=== PATIENT | female | born 1985 | race American Indian/Alaskan Native ===

== ENCOUNTER 2016-09-15 18:07 | Emergency (ER) | payer SELFPAY ==
[2016-09-15 18:43] VITALS: BP 115/70
--- NOTE | 2016-09-15 19:01 | Emergency Department Report ---
Upper Extremity - HPI Chief Complaint: Extremity Injury, Upper Stated Complaint: LT HAND INJURED Time Seen by Provider: 09/15/16 18:59 Upper Extremity: Right Hand (Pain shooting pain in lt hand) Occurred When: 2 Days Mechanism: Other (Lifting , changing car tire) Severity: moderate (6/10) Symptoms: No Pain with Movement, No Deformity, No Limited Range of Movement, No Numbness, No Weakness, No Swelling, No Bruising/Ecchymosis, No Laceration or Abrasion Other History: Patient reports shooting pain in both her hands that started 2 days ago. Pain resolved to rt hand but remains in lt hand. Shooting from wrist. This started after she was changing a tire from car. Took tylenol with little relief. No numbmess,to hands. Burning pain. Patient said she is 16 weeks followed by [facility]. No complaints of vaginal bleed, abdominal pain or back pain. Denies fever or nausea or vomiting. ED Review of Systems ROS: Stated complaint: LT HAND INJURED Other details as noted in HPI Comment: All other systems reviewed and negative Constitutional: denies: chills, fever ENT: denies: throat pain Respiratory: no symptoms reported Cardiovascular: denies: chest pain, palpitations, edema, syncope Gastrointestinal: denies: abdominal pain, nausea, vomiting Musculoskeletal: arthralgia. denies: back pain, joint swelling, myalgia Skin: denies: rash Neurological: paresthesias (burning). denies: headache, weakness, abnormal gait , vertigo ED Past Medical Hx - Past Medical History Previous Medical History?: No - Surgical History Past Surgical History?: No - Family History Family history: no significant - Social History Smoking Status: Never Smoker Substance Use Type: None - Medications Home Medications: Home Medications Medication Instructions Recorded Confirmed Last Taken Type Acetaminophen/Codeine [Tylenol 1 tab PO Q12H PRN #6 tab 09/15/16 Unknown Rx /Codeine # 3 tab] Upper Extremity Exam - Exam General: Vital signs noted. No distress. Alert and acting appropriately. This is a 31 yo female well nourished well developed in no acute distress Head and Torso: No HEENT Abnormality (normal exam), No Neck Tenderness (normal exam), No Chest/Lungs Abnormality (normal exam), No Abdominal Tenderness ( normal exam), No Back Tenderness (normal exam) Shoulder Exam: Yes Normal Range of Motion in Shoulder, No Shoulder Tenderness, No Clavicle Tenderness, No Shoulder Deformity, No AC Joint Tenderness Arm Exam: No Arm/Humerus Tenderness, No Arm Deformity Elbow: Yes Normal Range of Motion in Elbow, No Elbow Tenderness, No Elbow Deformity Forearm: No Forearm Tenderness, No Forearm Deformity, No Pain with Pronation, No Pain with Supination Wrist: Yes Normal ROM in Wrist, No Wrist Tenderness, No Wrist Deformity, No Snuffbox Tenderness, No Pain with Axial Thumb Compression Hand: Yes Normal ROM in Digit(s), No Hand Tenderness, No Hand Deformity, No Digit Tenderness, No Digit(s) Deformity, No Tendon Dysfunction CMS Exam: Yes Normal Distal Pulses, Yes Normal Capillary Refill, Yes Normal Distal Sensation, No Broken Skin ED Course Vital Signs 09/15/16 18:37 Temperature 98.4 F Pulse Rate 60 Respiratory 18 Rate Blood Pressure 115/70 Blood Pressure 115/70 [Right] O2 Sat by Pulse 100 Oximetry - Reevaluation(s) Reevaluation #1: 09/15/16 19:50 Patient stable and requesting splint and Orthopedic referral - Orthopedic Splinting/Casting Injury #1 Side: left Upper Extremity Injury Location: wrist Upper Extremity Immobilizer: wrist splint ED Medical Decision Making - Medical Decision Making ED Course: patient With Arthralgia Lt hand with burning pain. Exam is normal withou neurovascular compromise. See procedure note for splinting. I discussed dx and treatment plan with patient and she voiced understanding. Patient discharge home with prescription for Tylenol #3 and Ortho follow up. Critical care attestation.: If time is entered above; I have spent that time in minutes in the direct care of this critically ill patient, excluding procedure time. ED Disposition Clinical Impression: Arthralgia of left hand Disposition: DISCHARGED TO HOME OR SELFCARE Is pt being admited?: No Does the pt Need Aspirin: No Condition: Stable Instructions: Arthralgia (ED) Additional Instructions: avoid lifting heavy objects Follow up with orthopedic Prescriptions: Acetaminophen/Codeine [Tylenol /Codeine # 3 tab] 1 tab PO Q12H PRN #6 tab PRN Reason: Pain Referrals: MARY JO MARQUEZ MD [Staff Physician] - 2-3 Days Forms: Work/School Release Form(ED) Print Language: PERSIAN
== END 2016-09-15 20:02 | disposition home or self-care (01) ==
LOC: ED 18:07
DX: O26.892 Other specified pregnancy related conditions, second trimester (principal); M79.642 Pain in left hand; Z3A.16 16 weeks gestation of pregnancy
CPT/HCPCS: 99281

== ENCOUNTER 2016-10-07 12:45 | Emergency (ER) | payer SELFPAY ==
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
[2016-10-07 18:57] VITALS: BP 122/70
== END 2016-10-07 18:56 | disposition home or self-care (01) ==
LOC: ED 12:45
DX: O26.892 Other specified pregnancy related conditions, second trimester (principal); S16.1XXA Strain of muscle, fascia and tendon at neck level, initial encounter; V43.52XA Car driver injured in collision with other type car in traffic accident, initial encounter; Y93.89 Activity, other specified; Y99.8 Other external cause status; Y92.488 Other paved roadways as the place of occurrence of the external cause; Z3A.00 Weeks of gestation of pregnancy not specified
CPT/HCPCS: 99283

== ENCOUNTER 2016-10-23 05:33 | Emergency (ER) | payer SELFPAY ==
[2016-10-23 06:00] VITALS: BP 116/85
--- NOTE | 2016-10-23 08:15 | Emergency Department Report ---
ED Allergic Reaction HPI - General Chief complaint: Allergic Reaction Stated complaint: ANT BITE/SHORTNESS OF BREATH Source: patient Mode of arrival: Ambulatory Limitations: No Limitations - History of Present Illness Initial Comments: 31 year old female presents to ED with allergic reaction after insect bite x3 days. patient states she is 21 weeks . patient states she has insect bites on right arm and buttock area. patient states she has attempted to apply vaseline to insect bites with no relief. patient denies SOB, diff breathing, chest pain, tongue swelling. patient is stable, neurologically intact and in no acute distress. MD Complaint: allergic reaction -: days(s) (3) Exposure: insect bite Symptoms: rash, itching. denies: facial swelling, lip swelling, difficulty swallowing, difficulty breathing, orolingual swelling Severity: mild Treatment Prior to Arrival: none - Related Data Previous Rx's Medication Instructions Recorded Last Taken Type Acetaminophen/Codeine [Tylenol 1 tab PO Q12H PRN #6 tab 10/07/16 Unknown Rx /Codeine # 3 tab] Allergies Allergy/AdvReac Type Severity Reaction Status Date / Time No Known Allergies Allergy Verified 11/09/15 18:17 ED Review of Systems ROS: Stated complaint: ANT BITE/SHORTNESS OF BREATH Other details as noted in HPI Constitutional: denies: chills, fever Eyes: denies: eye pain, eye discharge, vision change ENT: denies: ear pain, throat pain Respiratory: denies: cough, shortness of breath, wheezing Cardiovascular: denies: chest pain, palpitations Endocrine: no symptoms reported Gastrointestinal: denies: abdominal pain, nausea, diarrhea Genitourinary: denies: urgency, dysuria, discharge Musculoskeletal: denies: back pain, joint swelling, arthralgia Skin: denies: rash, lesions Neurological: denies: headache, weakness, paresthesias Psychiatric: denies: anxiety, depression Hematological/Lymphatic: denies: easy bleeding, easy bruising ED Past Medical Hx - Past Medical History Previous Medical History?: No - Surgical History Past Surgical History?: No - Social History Smoking Status: Never Smoker Substance Use Type: None - Medications Home Medications: Home Medications Medication Instructions Recorded Confirmed Last Taken Type Acetaminophen/Codeine [Tylenol 1 tab PO Q12H PRN #6 tab 10/07/16 Unknown Rx /Codeine # 3 tab] ED Physical Exam - General Limitations: No Limitations General appearance: alert, in no apparent distress - Head Head exam: Present: atraumatic, normocephalic - Eye Eye exam: Present: normal appearance, EOMI - ENT ENT exam: Present: normal exam, mucous membranes moist - Neck Neck exam: Present: normal inspection, full ROM. Absent: tenderness - Respiratory Respiratory exam: Present: normal lung sounds bilaterally. Absent: respiratory distress, wheezes - Cardiovascular Cardiovascular Exam: Present: regular rate, normal rhythm. Absent: systolic murmur, diastolic murmur, rubs, gallop - GI/Abdominal GI/Abdominal exam: Present: soft, normal bowel sounds. Absent: tenderness - External exam: Present: normal external exam (female RN present during time of exam) - Extremities Exam Extremities exam: Present: normal inspection, full ROM, other (patient has .5cm hive present to right anterior upper arm. no surrounding erythema present) - Back Exam Back exam: Present: normal inspection - Neurological Exam Neurological exam: Present: alert, oriented X3, normal gait - Psychiatric Psychiatric exam: Present: normal affect, normal mood - Skin Skin exam: Present: warm, dry, intact, normal color, urticaria (right anterior upper arm). Absent: erythema ED Course Vital Signs 10/23/16 10/23/16 05:55 06:42 Temperature 98.6 F 98.9 F Pulse Rate 65 89 Respiratory 16 16 Rate Blood Pressure 116/85 O2 Sat by Pulse 98 100 Oximetry ED Medical Decision Making - Medical Decision Making 31 year old female presents to ED with insect bite/mild allergic reaction hives. no abscess or surrounding erythema present. patient is 21 weeks and has been instructed to use OTC zyrtec and OTC calamine lotion. patient denies SOB, diff breathing, facial swelling, chest pain. patient is stable, neurologically intact and in no acute distress. Critical care attestation.: If time is entered above; I have spent that time in minutes in the direct care of this critically ill patient, excluding procedure time. ED Disposition Clinical Impression: Insect bite Qualifiers: Encounter type: initial encounter Qualified Code(s): W57.XXXA - Bitten or stung by nonvenomous insect and other nonvenomous arthropods, initial encounter Disposition: DC-01 TO HOME OR SELFCARE Is pt being admited?: No Does the pt Need Aspirin: No Condition: Stable Instructions: Insect Bite or Sting (ED) Additional Instructions: Please use OTC zyrtec (oral antihistamine) and OTC Calamine lotion for allergic reaction/insect bite. Referrals: PRIMARY CARE, [Primary Care Provider] - 3-5 Days Forms: Work/School Release Form(ED)
== END 2016-10-23 08:12 | disposition home or self-care (01) ==
LOC: ED 05:33
DX: O26.892 Other specified pregnancy related conditions, second trimester (principal); S40.861A Insect bite (nonvenomous) of right upper arm, initial encounter; S30.860A Insect bite (nonvenomous) of lower back and pelvis, initial encounter; Z3A.21 21 weeks gestation of pregnancy; W57.XXXA Bitten or stung by nonvenomous insect and other nonvenomous arthropods, initial encounter; Y93.89 Activity, other specified; Y92.89 Other specified places as the place of occurrence of the external cause; Y99.8 Other external cause status
CPT/HCPCS: 99282

== ENCOUNTER 2016-11-18 22:33 | Outpatient (CLI) | payer OTHER ==
[2016-11-18] MEDS ORDERED: LACTATED RINGERS 1,000 ML IV ONE (22:41)
[2016-11-18 23:15] VITALS: BP 112/68
[2016-11-18 23:44] LABS: Bilirubin,Urine NEG (Negative); Blood,Urine NEG (Negative); Ketones,Urine NEG (Negative); Leukocyte Esterase,Urine NEG (Negative); Mucus,Urine FEW /HPF; Nitrite,Urine NEG (Negative); Protein,Urine <15 mg/dL mg/dL (Negative); Urobilinogen,Urine < 2.0 mg/dL (<2.0)
[2016-11-19 00:28] LABS: Urine Drugs of Abuse Note Disclamer
== END 2016-11-19 00:53 | disposition home or self-care (01) ==
LOC: TRG 22:33
PROVIDERS: ATTEND Obstetrics & Gynecology
DX: O21.2 Late vomiting of pregnancy (principal); Z3A.24 24 weeks gestation of pregnancy
CPT/HCPCS: 59025; 80307; 81001; 96360; J7120

== ENCOUNTER 2017-03-31 12:12 | Emergency (ER) | payer OTHER ==
[2017-03-31 12:54] LABS: Basophils % (Auto) 0.3 % (0.0-1.8); Eosinophils % (Auto) 1.8 % (0.0-4.3); Hematocrit 33.4 % (30.3-42.9); Hemoglobin 11.1 gm/dl (10.1-14.3); Mean Corpuscular HGB Conc 33 % (30-34); Mean Corpuscular Hemoglobin 31 pg (28-32); Mean Corpuscular Volume 94 fl (79-97); Platelet Count 305 K/mm3 (140-440); Red Blood Count 3.58 M/mm3 (3.65-5.03); Red Cell Distribution Width 13.2 % (13.2-15.2)
[2017-03-31] MEDS ORDERED: SUBLIMAZE IV ONE (12:56)
[2017-03-31] MEDS ORDERED: APRESOLINE IV ONE ×2 (12:56→14:38)
[2017-03-31] MEDS ORDERED: NACL 0.9% 500 ML 500 ML IV ONE (12:57)
--- NOTE | 2017-03-31 12:58 | Emergency Department Report ---
<JOSE ROBBINS - Last Filed: 03/31/17 17:15> ED General Adult HPI - General Chief complaint: Dyspnea/Respdistress Stated complaint: SHORTNESS OF BREATH Time Seen by Provider: 03/31/17 12:39 - Related Data Previous Rx's Medication Instructions Recorded Last Taken Type Acetaminophen/Codeine [Tylenol 1 tab PO Q12H PRN #6 tab 10/07/16 Unknown Rx /Codeine # 3 tab] Naproxen [Naprosyn] 500 mg PO BID #10 tablet 03/31/17 Unknown Rx Allergies Allergy/AdvReac Type Severity Reaction Status Date / Time No Known Allergies Allergy Verified 11/09/15 18:17 ED Review of Systems ROS: Stated complaint: SHORTNESS OF BREATH Other details as noted in HPI ED Past Medical Hx - Medications Home Medications: Home Medications Medication Instructions Recorded Confirmed Last Taken Type Acetaminophen/Codeine [Tylenol 1 tab PO Q12H PRN #6 tab 10/07/16 Unknown Rx /Codeine # 3 tab] Naproxen [Naprosyn] 500 mg PO BID #10 tablet 03/31/17 Unknown Rx ED Course Vital Signs 03/31/17 03/31/17 03/31/17 12:16 12:46 12:52 Temperature 97.8 F 98.1 F Pulse Rate 68 62 Respiratory 20 18 Rate Blood Pressure 166/91 Blood Pressure 181/98 [Right] O2 Sat by Pulse 100 100 100 Oximetry 03/31/17 03/31/17 03/31/17 13:00 13:16 13:30 Temperature Pulse Rate 60 57 L 77 Respiratory 15 12 11 L Rate Blood Pressure 153/68 153/68 153/68 Blood Pressure [Right] O2 Sat by Pulse 100 100 Oximetry 03/31/17 03/31/17 03/31/17 13:33 13:46 14:00 Temperature Pulse Rate 98 H 78 87 Respiratory 18 14 14 Rate Blood Pressure 188/82 153/68 153/68 Blood Pressure [Right] O2 Sat by Pulse 100 100 Oximetry 03/31/17 03/31/17 03/31/17 14:42 15:03 17:14 Temperature 98.5 F Pulse Rate 86 120 H Respiratory 18 Rate Blood Pressure 153/68 124/97 Blood Pressure 117/51 [Right] O2 Sat by Pulse 100 100 Oximetry ED Medical Decision Making - Lab Data Result diagrams: 03/31/17 12:30 03/31/17 12:30 - Medical Decision Making ABDOMINLA US: NEGATIVE FOR OVARIAN TORSION IN LEFT OVARY, RIGHT OVARY NOT EXAMINED BECAUSE PT TERMINATED THE STUDY EARLY. PT WAS NOT TENDER OVER RIGHT OVARY ON EXAM Critical care attestation.: If time is entered above; I have spent that time in minutes in the direct care of this critically ill patient, excluding procedure time. ED Disposition Clinical Impression: Dyspnea Disposition: DC-01 TO HOME OR SELFCARE Is pt being admited?: No Does the pt Need Aspirin: No Condition: Stable Instructions: Acute Abdominal Pain (ED), Hypertension (ED) Additional Instructions: Continue current outpatient medications. Follow up with her primary care doctor or aviation boatswain's mate within the next 5-7 days for your left sided chest wall pain and hypertension. Please note that blood pressure was very elevated while in the emergency department. This needs to be closely followed up and monitored by either an outpatient primary care doctor or aviation boatswain's mate. Long- term complications of hypertension includes stroke, heart attack, disability, , paralysis, loss of quality of life. Do not breast-feed for the next 24 hours. Follow-up with your maintenance truck driver at [place] as scheduled. Return to the ER right away with new pain, worsened pain, migration of pain, fevers, chills, lethargy, irritability, projectile vomiting, change in mental status, confusion, inability to tolerate liquid feeds. Prescriptions: Naproxen [Naprosyn] 500 mg PO BID #10 tablet Referrals: PRIMARY CAREMD [Primary Care Provider] - 3-5 Days [facility] [Provider Group] - 3-5 Days [facility] [Provider Group] - 3-5 Days [facility] [Provider Group] - 3-5 Days [facility] [Provider Group] - 3-5 Days [facility] [Provider Group] - 3-5 Days Time of Disposition: 17:17 <MITESH GARCIA - Last Filed: 04/02/17 01:02> ED General Adult HPI - General Source: patient, RN notes reviewed Mode of arrival: Ambulatory Limitations: No Limitations - History of Present Illness Initial comments: This is a 32-year-old female who is previously unknown to this provider. Patient is status post normal spontaneous vaginal delivery on March 01 at [facility]. Patient reports a past medical history of schizophrenia and hypertension, reports that she is taking Procardia ER 30 mg. She reports that she was diagnosed with hypertension in the last 2 weeks of her . The patient presents to the ER with shortness of breath and left lateral thoracic wall chest pain. The shortness of breath is new. It has been present for a few days. It does not radiate anywhere. It does not have exacerbating or relieving factors. Left-sided chest wall pain has been present for year. It waxes and wanes. He does not have exacerbating or relieving factors. It does not radiate anywhere. Patient denies severe headache, neck pain, vomiting , irritative urinary symptoms, still having some vaginal discharge and vaginal discomforts after delivery. Also admits to chronic lower abdominal discomfort since her delivery. -: Gradual Location: chest, abdomen Severity scale (0 -10): 1 Quality: aching Consistency: intermittent Improves with: rest Worsens with: movement Associated Symptoms: chest pain, shortness of breath. denies: confusion ED Review of Systems Constitutional: denies: fever Respiratory: shortness of breath Cardiovascular: chest pain Gastrointestinal: abdominal pain Genitourinary: denies: dysuria Musculoskeletal: denies: arthralgia Neurological: denies: weakness Psychiatric: anxiety ED Past Medical Hx - Past Medical History Previous Medical History?: Yes Hx Hypertension: No Hx Diabetes: No Hx Deep Vein Thrombosis: No Hx Renal Disease: No Hx Sickle Cell Disease: No Hx Seizures: No Hx Asthma: No Hx HIV: No Additional medical history: Vaginal delivery x 3 - Surgical History Past Surgical History?: No - Social History Smoking Status: Former Smoker Substance Use Type: Prescribed ED Physical Exam - General Limitations: No Limitations General appearance: alert, in no apparent distress - Head Head exam: Present: atraumatic, normocephalic - Eye Eye exam: Present: normal appearance, EOMI. Absent: nystagmus - ENT ENT exam: Present: normal exam, normal orophraynx, mucous membranes moist, normal external ear exam - Neck Neck exam: Present: normal inspection, full ROM. Absent: tenderness, meningismus - Respiratory Respiratory exam: Present: normal lung sounds bilaterally, chest wall tenderness (reproducible chest wall tenderness, during the breast examination, escorted by shelbie liu, pilot highway patrol). Absent: respiratory distress - Cardiovascular Cardiovascular Exam: Present: regular rate, normal rhythm, normal heart sounds. Absent: systolic murmur, diastolic murmur, rubs, gallop - GI/Abdominal GI/Abdominal exam: Present: soft, tenderness, normal bowel sounds, other (his left lower quadrant tenderness, there is suprapubic tenderness, there is no rebound, guarding or peritoneal signs). Absent: distended, guarding, rebound, rigid, pulsatile mass - Extremities Exam Extremities exam: Present: normal inspection, full ROM, normal capillary refill. Absent: pedal edema, joint swelling, calf tenderness - Back Exam Back exam: Present: normal inspection, full ROM. Absent: tenderness, CVA tenderness (R), paraspinal tenderness, vertebral tenderness - Neurological Exam Neurological exam: Present: alert, oriented X3, CN II-XII intact, normal gait, other (Extraocular movements intact. Tongue midline. No facial droop. Facial sensation intact to light touch in the V1, V2, V3 distribution bilaterally. 5 and 5 strength in 4 extremities.. Sensation is intact to light touch in 4 extremities.). Absent: motor sensory deficit - Psychiatric Psychiatric exam: Present: normal affect, normal mood - Skin Skin exam: Present: warm, dry, intact, normal color. Absent: rash ED Course - Reevaluation(s) Reevaluation #1: 03/31/17 14:43 Differential diagnosis, including not limited to: cardiac myopathy, pulmonary embolus, pneumonia, pericarditis, myocarditis, pericardial effusion Pneumothorax, intra-abdominal infection, retained products of conception Assessment and plan: 32-year-old female with chest pain, shortness of breath and lower abdominal pain after delivery. She is one-month status post delivery. She does not have lower extremity edema, she does not have large proteinuria, she does not have transaminitis, and she only has elevated blood pressure. Therefore she does not meet definition for preeclampsia. She is given hydralazine and fentanyl. Patient's been having chest pain on and off for a year. Low risk by JONH score , low risk by heart score, troponin negative 1, as for the [employer] clinical policy, myocardial infarction may be excluded with 1 set of troponins/cardiac enzymes if symptoms were present for greater than 8 hours. Patient is a poor historian, therefore CT scan of the chest has been obtained, and CT scan abdomen and pelvis has also been obtained. Still sightly hypertensive, additional hydralazine has been ordered. Reevaluation #2: 03/31/17 15:14 CT scan of the chest is negative. CT scan of the abdomen and pelvis is negative. Pelvic ultrasound is pending. Reevaluation #3: 03/31/17 15:34 Patient had an anxiety attack while in ultrasound, and requested medication to help her participate in the ultrasound. Ativan is ordered. Blood pressure is improved. Reevaluation #4: 03/31/17 15:59 care will be transferred to Dr Gutierrez to follow up on pelvic ultrasound if no retained products of conception are noted, I would consider the patient suitable for discharge 03/31/17 16:07 ED Medical Decision Making - Lab Data Result diagrams: 03/31/17 12:30 03/31/17 12:30 Vital Signs 03/31/17 03/31/17 03/31/17 12:16 12:52 13:33 Temperature 97.8 F 98.1 F Pulse Rate 68 62 98 H Respiratory 20 18 18 Rate Blood Pressure 166/91 188/82 Blood Pressure 181/98 [Right] O2 Sat by Pulse 100 100 Oximetry Lab Results 03/31/17 03/31/17 03/31/17 Range/Units 12:30 12:30 12:30 WBC 5.0 (4.5-11.0) K/mm3 RBC 3.58 L (3.65-5.03) M/mm3 Hgb 11.1 (10.1-14.3) gm/dl Hct 33.4 (30.3-42.9) % MCV 94 (79-97) fl MCH 31 (28-32) pg MCHC 33 (30-34) % RDW 13.2 (13.2-15.2) % Plt Count 305 (140-440) K/mm3 Lymph % (Auto) 37.6 H (13.4-35.0) % [place] % (Auto) 9.2 H (0.0-7.3) % Eos % (Auto) 1.8 (0.0-4.3) % Baso % (Auto) 0.3 (0.0-1.8) % Lymph # 1.9 (1.2-5.4) K/mm3 [place] # 0.5 (0.0-0.8) K/mm3 Eos # 0.1 (0.0-0.4) K/mm3 Baso # 0.0 (0.0-0.1) K/mm3 Seg Neutrophils % 51.1 (40.0-70.0) % Seg Neutrophils # 2.6 (1.8-7.7) K/mm3 PT (12.2-14.9) Sec. INR (0.87-1.13) APTT (24.2-36.6) Sec. Sodium 141 (137-145) mmol/L Potassium 4.4 (3.6-5.0) mmol/L Chloride 102.4 (98-107) mmol/L Carbon Dioxide 24 (22-30) mmol/L Anion Gap 19 mmol/L BUN 16 (7-17) mg/dL Creatinine 0.8 (0.7-1.2) mg/dL Estimated GFR > 60 ml/min BUN/Creatinine Ratio 20 % Glucose 77 (65-100) mg/dL Calcium 9.6 (8.4-10.2) mg/dL Total Bilirubin < 0.20 (0.1-1.2) mg/dL Direct Bilirubin < 0.2 (0-0.2) mg/dL Indirect Bilirubin 0.0 mg/dL AST 16 (5-40) units/L ALT 16 (7-56) units/L Alkaline Phosphatase 82 (35-129) units/L Troponin T < 0.010 (0.00-0.029) ng/mL Total Protein 6.5 (6.3-8.2) g/dL Albumin 3.9 (3.9-5) g/dL Albumin/Globulin Ratio 1.5 % Urine Color (Yellow) Urine Turbidity (Clear) Urine pH (5.0-7.0) Ur Specific [place] (1.003-1.030) Urine Protein (Negative) mg/dL Urine Glucose (UA) (Negative) mg/dL Urine Ketones (Negative) mg/dL Urine Blood (Negative) Urine Nitrite (Negative) Urine Bilirubin (Negative) Urine Urobilinogen (<2.0) mg/dL Ur Leukocyte Esterase (Negative) Urine WBC (Auto) (0.0-6.0) /HPF Urine RBC (Auto) (0.0-6.0) /HPF U Epithel Cells (Auto) (0-13.0) /HPF Urine Bacteria (Auto) (Negative) /HPF Urine Mucus /HPF 03/31/17 03/31/17 Range/Units 12:42 13:52 WBC (4.5-11.0) K/mm3 RBC (3.65-5.03) M/mm3 Hgb (10.1-14.3) gm/dl Hct (30.3-42.9) % MCV (79-97) fl MCH (28-32) pg MCHC (30-34) % RDW (13.2-15.2) % Plt Count (140-440) K/mm3 Lymph % (Auto) (13.4-35.0) % [place] % (Auto) (0.0-7.3) % Eos % (Auto) (0.0-4.3) % Baso % (Auto) (0.0-1.8) % Lymph # (1.2-5.4) K/mm3 [place] # (0.0-0.8) K/mm3 Eos # (0.0-0.4) K/mm3 Baso # (0.0-0.1) K/mm3 Seg Neutrophils % (40.0-70.0) % Seg Neutrophils # (1.8-7.7) K/mm3 PT 12.7 (12.2-14.9) Sec. INR 0.91 (0.87-1.13) APTT 30.0 (24.2-36.6) Sec. Sodium (137-145) mmol/L Potassium (3.6-5.0) mmol/L Chloride (98-107) mmol/L Carbon Dioxide (22-30) mmol/L Anion Gap mmol/L BUN (7-17) mg/dL Creatinine (0.7-1.2) mg/dL Estimated GFR ml/min BUN/Creatinine Ratio % Glucose (65-100) mg/dL Calcium (8.4-10.2) mg/dL Total Bilirubin (0.1-1.2) mg/dL Direct Bilirubin (0-0.2) mg/dL Indirect Bilirubin mg/dL AST (5-40) units/L ALT (7-56) units/L Alkaline Phosphatase (35-129) units/L Troponin T (0.00-0.029) ng/mL Total Protein (6.3-8.2) g/dL Albumin (3.9-5) g/dL Albumin/Globulin Ratio % Urine Color Yellow (Yellow) Urine Turbidity Clear (Clear) Urine pH 5.0 (5.0-7.0) Ur Specific [place] 1.011 (1.003-1.030) Urine Protein <15 mg/dl (Negative) mg/dL Urine Glucose (UA) Neg (Negative) mg/dL Urine Ketones Neg (Negative) mg/dL Urine Blood Sm (Negative) Urine Nitrite Neg (Negative) Urine Bilirubin Neg (Negative) Urine Urobilinogen < 2.0 (<2.0) mg/dL Ur Leukocyte Esterase Neg (Negative) Urine WBC (Auto) 2.0 (0.0-6.0) /HPF Urine RBC (Auto) < 1.0 (0.0-6.0) /HPF U Epithel Cells (Auto) 3.0 (0-13.0) /HPF Urine Bacteria (Auto) 1+ (Negative) /HPF Urine Mucus Few /HPF - EKG Data 03/31/17 14:42 Sinus, 61 bpm, normal axis, IA interval slightly prolonged, 222 ms, abnormal EKG , not morphologically consistent with ST elevation myocardial infarction - Radiology Data Radiology results: report reviewed, image reviewed X-ray the chest is negative. CT scan of the chest: CT scan of the abdomen and pelvis: ED Disposition Is pt being admited?: No Does the pt Need Aspirin: No
[2017-03-31 13:01] LABS: INR 0.91 (0.87-1.13)
[2017-03-31 13:09] LABS: Anion Gap 19 mmol/L; BUN/Creatinine Ratio 20; Blood Urea Nitrogen 16 mg/dL (7-17); Calcium 9.6 mg/dL (8.4-10.2); Carbon Dioxide 24 mmol/L (22-30); Chloride 102.4 mmol/L (98-107); Glucose 77 mg/dL (65-100); Potassium 4.4 mmol/L (3.6-5.0); Sodium 141 mmol/L (137-145)
[2017-03-31 13:14] LABS: Alanine Aminotransferase 16 units/L (7-56); Albumin 3.9 g/dL (3.9-5); Albumin/Globulin Ratio 1.5 %; Alkaline Phosphatase 82 units/L (35-129); Bilirubin,Total < 0.20 mg/dL (0.1-1.2); Total Protein 6.5 g/dL (6.3-8.2)
[2017-03-31 13:15] LABS: Bilirubin,Direct < 0.2 mg/dL (0-0.2)
--- NOTE | 2017-03-31 13:44 | XRay Report ---
AP CHEST: HISTORY: Shortness of breath AP view of the chest demonstrates a normal mediastinal and cardiac contour with clear lungs and normal bony and soft tissue structures. IMPRESSION: Unremarkable AP chest.
[2017-03-31 14:09] LABS: Bacteria,Urine 1+ /HPF (Negative); Bilirubin,Urine NEG (Negative); Blood,Urine SM (Negative); Ketones,Urine NEG (Negative); Leukocyte Esterase,Urine NEG (Negative); Mucus,Urine FEW /HPF; Nitrite,Urine NEG (Negative); Protein,Urine <15 mg/dL mg/dL (Negative); RBC,Urine < 1.0 /HPF (0.0-6.0); Urobilinogen,Urine < 2.0 mg/dL (<2.0)
--- NOTE | 2017-03-31 14:47 | Cat Scan Report ---
CTA CHEST: HISTORY: Chest pain, shortness of breath. COMPARISON: none. TECHNIQUE: Helical CT in 1.25mm intervals following IV contrast. Pulmonary embolus protocol. Sagittal and coronal reformatted images. Rotational MIP images. FINDINGS: Contrast bolus is satisfactory. No pulmonary embolus is identified. Thyroid gland: Normal. Tracheobronchial tree: Normal. Esophagus: Normal. Heart: Normal. Pericardium: Normal. Mediastinum: Normal. Lung [place]: normal. Pleural Spaces: Normal. Musculoskeletal: Normal. IMPRESSION: No evidence for pulmonary embolus. Unremarkable CT chest with contrast.
--- NOTE | 2017-03-31 14:50 | Cat Scan Report ---
CT ABDOMEN PELVIS WITH CONTRAST: HISTORY: abdominal pain. COMPARISON: none. TECHNIQUE: Helical CT in 1.25mm intervals following IV contrast. Sagittal and coronal reconstructions. FINDINGS: Lung bases: Normal. Liver: Normal. Biliary system: Normal. Pancreas: Normal. Spleen: Normal. Kidneys/ureters/bladder: Normal. Adrenal glands: Normal. Aorta: Normal. Intestines: Normal. Appendix: Normal. Pelvic viscera: uterus. The right ovary is normal. A 2.1 cm left ovarian cyst is identified. Ascites: None. Adenopathy: None. Musculoskeletal: Normal. IMPRESSION: No acute abdominal process is identified. 2.1 cm left ovarian cyst.
[2017-03-31] MEDS ORDERED: ATIVAN ONE (15:35)
--- NOTE | 2017-03-31 16:17 | Ultrasound Report ---
FINAL REPORT EXAM: US PELVIS DUPLEX DOPPLER COMP HISTORY: lower abd pain TECHNIQUE: Transabdominal pelvic ultrasound. PRIORS: None currently available. FINDINGS: Uterus: 10.8 x 5.1 x 6.8 cm. Anteverted. No distinct lesions. Homogeneous. Endometrium: 13 mm. Echogenic Aimee heterogeneous. Within normal limits for a menstruating patient. Right ovary: Not examined because patient requested examination to terminate Left ovary: 4.0 x 2.1 x 2.7 cm. 2.3 cm follicular type cyst. No complexity. Flow is present to the left ovary. No adnexal lesions. No significant free fluid. IMPRESSION: Left ovarian follicular type cyst. Right ovary not examined because patient ended study prematurely. Otherwise unremarkable.
[2017-03-31 17:15] VITALS: BP 117/51
[2017-03-31] MEDS ORDERED: ATIVAN IV ONE (17:15)
== END 2017-03-31 18:21 | disposition home or self-care (01) ==
LOC: ED 12:12
DX: R06.00 Dyspnea, unspecified (principal); Z87.891 Personal history of nicotine dependence
CPT/HCPCS: 36415; 71010; 71275; 74177; 80048; 80074; 81001; 84484; 85025; 85610; 85730; 93005; 93010; 93975; 96374; 96375; 96376; 99284; J0360; J2060; J3010; J7040; Q9967

== ENCOUNTER 2017-04-03 23:20 | Emergency (ER) | payer OTHER | END 2017-04-04 01:40 | disposition left against medical advice (07) | LOC: ED 23:20 | DX: R10.9 Unspecified abdominal pain (principal); R06.09 Other forms of dyspnea; Z53.21 Procedure and treatment not carried out due to patient leaving prior to being seen by health care provider ==

== ENCOUNTER 2017-04-09 14:59 | Emergency (ER) | payer OTHER ==
[2017-04-09 15:16] VITALS: BP 173/78
== END 2017-04-09 17:00 | disposition left against medical advice (07) ==
LOC: ED 14:59
DX: R06.02 Shortness of breath (principal); Z53.21 Procedure and treatment not carried out due to patient leaving prior to being seen by health care provider

== ENCOUNTER 2017-05-15 01:06 | Emergency (ER) | payer OTHER ==
[2017-05-15 02:52] LABS: Basophils % (Auto) 0.5 % (0.0-1.8); Eosinophils # (Auto) 0.1 K/mm3 (0.0-0.4); Eosinophils % (Auto) 2.3 % (0.0-4.3); Hematocrit 39.7 % (30.3-42.9); Hemoglobin 13.2 gm/dl (10.1-14.3); Lymphocytes # (Auto) 2.3 K/mm3 (1.2-5.4); Lymphocytes % (Auto) 44.2 % (13.4-35.0); Mean Corpuscular HGB Conc 33 % (30-34); Mean Corpuscular Hemoglobin 31 pg (28-32); Mean Corpuscular Volume 92 fl (79-97); Monocytes # (Auto) 0.5 K/mm3 (0.0-0.8); Monocytes % (Auto) 8.8 % (0.0-7.3); Platelet Count 316 K/mm3 (140-440)
--- NOTE | 2017-05-15 03:02 | XRay Report ---
FINAL REPORT EXAM: XR CHEST ROUTINE 2V HISTORY: Shortness of breath TECHNIQUE: PA and lateral views of the chest were submitted. FINDINGS: The heart size is at the upper limits of normal. The lungs are clear. Pleural fluid is not seen. The bones and soft tissues appear normal. IMPRESSION: No active chest disease.
[2017-05-15 03:05] LABS: BUN/Creatinine Ratio 19; Blood Urea Nitrogen 19 mg/dL (7-17); Calcium 9.6 mg/dL (8.4-10.2); Hemolysis Index 7
[2017-05-15] MEDS ORDERED: MOTRIN PO ONE (11:10)
--- NOTE | 2017-05-15 11:20 | Emergency Department Report ---
HPI - General Chief Complaint: Chest Pain Time Seen by Provider: 05/15/17 09:55 - HPI HPI: The patient is a 32-year-old female presents for evaluation of cough and chest pain. She states that has experienced on and off cough and chest pain for the past 4-6 weeks. She states that her pain is currently 9/10 in severity, Worsened and severe for the past one week, exacerbated with coughing, aching in quality. The patient denies fever, neck pain, parasthesias, hemoptysis, palpitations, dizziness, syncope, unilateral leg swelling, calf muscle pain. Patient also denies cocaine or other stimulant use, oral contraception use, history of DVT or PE, recent immobilization, or history of cancer. ED Past Medical Hx - Past Medical History Previous Medical History?: Yes Hx Hypertension: No Hx Diabetes: No Hx Deep Vein Thrombosis: No Hx Renal Disease: No Hx Sickle Cell Disease: No Hx Seizures: No Hx Asthma: No Hx HIV: No Additional medical history: Vaginal delivery x 3 - Surgical History Past Surgical History?: No - Social History Smoking Status: Former Smoker Substance Use Type: None - Medications Home Medications: Home Medications Medication Instructions Recorded Confirmed Last Taken Type Acetaminophen/Codeine [Tylenol 1 tab PO Q12H PRN #6 tab 10/07/16 Unknown Rx /Codeine # 3 tab] Naproxen [Naprosyn] 500 mg PO BID #10 tablet 03/31/17 Unknown Rx Azithromycin [Zithromax Z-RICHARD] 250 mg PO QDAY #6 tablet 05/15/17 Unknown Rx Benzonatate [Tessalon Perles] 100 mg PO Q8HR #20 capsule 05/15/17 Unknown Rx Ibuprofen [Motrin] 800 mg PO Q8HR PRN #15 tablet 05/15/17 Unknown Rx traMADol [Ultram 50 MG tab] 50 mg PO Q6HR PRN #10 tablet 05/15/17 Unknown Rx ED Review of Systems ROS: Stated complaint: URI SX Other details as noted in HPI Constitutional: denies: fever ENT: denies: throat or neck pain Respiratory: denies: cough reports shortness of breath Cardiovascular: reports chest pain Endocrine: denies unexplained weight loss or gain Gastrointestinal: denies: abdominal pain, nausea Genitourinary: denies: dysuria Musculoskeletal: denies: leg swelling Skin: denies: rash Neurological: denies: headache Hematological/Lymphatic: denies: easy bleeding or easy bruising Psych: denies sadness or hopelessness Physical Exam - Physical Exam Vital Signs: Vital Signs 05/15/17 05/15/17 01:53 10:00 Temperature 98.6 F 98.1 F Pulse Rate 58 L 55 L Respiratory 18 23 Rate Blood Pressure 134/74 Blood Pressure 138/75 [Left] O2 Sat by Pulse 98 98 Oximetry Physical Exam: General: well-nourished, well-developed, no acute distress Head: Normocephalic, atraumatic Eyes: normal sclera ENT: Mucous membranes are pale and dry Neck: trachea midline, neck supple, No neck stiffness, no cervical adenopathy Respiratory: Breath sounds equal bilaterally, no wheezing, rales, or rhonchi Cardio: S1 and S2 present, no murmurs, rubs, gallops, capillary refill is delayed Abdomen: Normoactive bowel sounds, soft abdomen, no rigidity, no guarding or rebound tenderness Musc: No pitting edema Skin: No rash Neuro: no facial drooping, normal speech Psych: Normal affect ED Course Vital Signs 05/15/17 05/15/17 01:53 10:00 Temperature 98.6 F 98.1 F Pulse Rate 58 L 55 L Respiratory 18 23 Rate Blood Pressure 134/74 Blood Pressure 138/75 [Left] O2 Sat by Pulse 98 98 Oximetry ED Medical Decision Making - Lab Data Result diagrams: 05/15/17 02:20 05/15/17 02:20 - Medical Decision Making The patient was seen and examined by myself. The patient is placed on a cardiac rehabilitation program director and continuous pulse ox. On initial evaluation, the patient was found to be in no distress. EKG was negative for findings suggestive of acute cardiac infarct. Labs and imaging are obtained. The patient is given a tablet of Motrin for her pain. Chest x-ray is negative for pneumothorax, focal consolidation, pulmonary vascular congestion, pleural effusion, or other obvious acute cardiopulmonary disease process. Lab results were non-concerning including levels of troponin, WBC, hemoglobin, hematocrit, electrolytes, renal function. The patient was reevaluated and reported that their symptoms were markedly improved. As the patient has a JONH risk score less than 2, and a well 's score less than 2, the patient is at low risk of ACS or pulmonary emboli etiology of their symptoms. The patient is stable for discharge with outpatient follow-up. The patient is given follow-up and return instructions. The patient expressed understanding and agreed with the plan. The patient is discharged in stable condition. Critical care attestation.: If time is entered above; I have spent that time in minutes in the direct care of this critically ill patient, excluding procedure time. ED Disposition Clinical Impression: Acute chest pain, Bronchitis Disposition: TO HOME OR SELFCARE Is pt being admited?: No Does the pt Need Aspirin: No Condition: Stable Instructions: Chest Pain (ED), Costochondritis (ED), Chronic Bronchitis (ED) Prescriptions: Azithromycin [Zithromax Z-RICHARD] 250 mg PO QDAY #6 tablet Benzonatate [Tessalon Perles] 100 mg PO Q8HR #20 capsule Ibuprofen [Motrin] 800 mg PO Q8HR PRN #15 tablet PRN Reason: Pain traMADol [Ultram 50 MG tab] 50 mg PO Q6HR PRN #10 tablet PRN Reason: Pain Referrals: DWAYNE CASTILLO PA [Primary Care Provider] - 3-5 Days Time of Disposition: 11:11
[2017-05-15 11:48] VITALS: BP 175/90
== END 2017-05-15 11:46 | disposition home or self-care (01) ==
LOC: ED 01:06
DX: J40 Bronchitis, not specified as acute or chronic (principal)
CPT/HCPCS: 36415; 71046; 80048; 84484; 84703; 85025; 93005; 93010

== ENCOUNTER 2017-08-27 11:42 | Emergency (ER) | payer OTHER ==
[2017-08-27 12:54] VITALS: BP 159/69
[2017-08-27] MEDS ORDERED: DELTASONE PO ONE (14:48)
--- NOTE | 2017-08-27 14:48 | Emergency Department Report ---
HPI - General Chief Complaint: Skin Rash Time Seen by Provider: 08/27/17 14:12 - HPI HPI: Patient is a 32-year-old female who presents a rash to her right wrist region. Patient states that on Friday 4 days ago she went to [facility] and brought a sunburn gel which she applied to her wrist. Patient states since then she has had some rash on her wrists where she applied the gel. Patient states that she is currently itching intermittently throughout the day. She denies fevers/chills/nausea vomiting or any other symptoms. ED Past Medical Hx - Past Medical History Hx Hypertension: No Hx Diabetes: No Hx Deep Vein Thrombosis: No Hx Renal Disease: No Hx Sickle Cell Disease: No Hx Seizures: No Hx Asthma: No Hx HIV: No Additional medical history: Vaginal delivery x 3 - Social History Smoking Status: Never Smoker Substance Use Type: None - Medications Home Medications: Home Medications Medication Instructions Recorded Confirmed Last Taken Type Acetaminophen/Codeine [Tylenol 1 tab PO Q12H PRN #6 tab 10/07/16 Unknown Rx /Codeine # 3 tab] Naproxen [Naprosyn] 500 mg PO BID #10 tablet 03/31/17 Unknown Rx Azithromycin [Zithromax Z-RICHARD] 250 mg PO QDAY #6 tablet 05/15/17 Unknown Rx Benzonatate [Tessalon Perles] 100 mg PO Q8HR #20 capsule 05/15/17 Unknown Rx Ibuprofen [Motrin] 800 mg PO Q8HR PRN #15 tablet 05/15/17 Unknown Rx traMADol [Ultram 50 MG tab] 50 mg PO Q6HR PRN #10 tablet 05/15/17 Unknown Rx Hydrocortisone 0.5% 1 applicatio TP TID #1 tube 08/27/17 Unknown Rx [Hydrocortisone 0.5% CREAM] diphenhydrAMINE [Benadryl CAP] 25 mg PO QHS PRN #30 capsule 08/27/17 Unknown Rx ED Review of Systems ROS: Stated complaint: RASH ON HAND AND EYE Other details as noted in HPI Constitutional: denies: chills, fever Eyes: denies: eye pain, eye discharge, vision change ENT: denies: ear pain, throat pain Respiratory: denies: cough, shortness of breath, wheezing Cardiovascular: denies: chest pain, palpitations Endocrine: no symptoms reported Gastrointestinal: denies: abdominal pain, nausea, diarrhea Genitourinary: denies: urgency, dysuria, discharge Musculoskeletal: denies: back pain, joint swelling, arthralgia Skin: denies: rash, lesions Neurological: denies: headache, weakness, paresthesias Psychiatric: denies: anxiety, depression Hematological/Lymphatic: denies: easy bleeding, easy bruising Physical Exam - Physical Exam Vital Signs: Vital Signs 08/27/17 12:48 Temperature 97.9 F Pulse Rate 64 Respiratory 18 Rate Blood Pressure 159/69 O2 Sat by Pulse 100 Oximetry Physical Exam: GENERAL: Alert and oriented x3, no apparent distress, Normal Gait, atraumatic. HEAD: Head is normocephalic and a-traumatic. MOUTH:Mouth is well hydrated and without lesions. Tonsils nonerythematous or swollen, Uvula midline, Tongue not elevated. Mucous membranes are moist. Posterior pharynx clear, no exudate or lesions. Patent airways. NECK: Supple. Non edematous, No carotid bruits. No lymphadenopathy or thyromegaly. No C-spine tenderness LUNGS: Symetrical with respiration, No wheezing, no rales or crackles, CTAB. HEART: S1, S2 present, regular rate and rhythm without murmur, no rubs, no gallops. Non tender to palpation SKIN: Warm and dry, generalized, erythematous, pinpoint rash localized to right wrist region. Nontender to palpation, not draining, No other lesions, No ulceration or induration present. Tattoos seen on wrist and arm ED Course Vital Signs 08/27/17 12:48 Temperature 97.9 F Pulse Rate 64 Respiratory 18 Rate Blood Pressure 159/69 O2 Sat by Pulse 100 Oximetry ED Medical Decision Making - Medical Decision Making 31-year-old female presents with simple contact dermatitis Discussed Benadryl and hydrocortisone home medications Patient had no respiratory acute distress in in the ED Discussed to follow up with primary care. Critical care attestation.: If time is entered above; I have spent that time in minutes in the direct care of this critically ill patient, excluding procedure time. ED Disposition Clinical Impression: Contact dermatitis Disposition: DC-01 TO HOME OR SELFCARE Is pt being admited?: No Does the pt Need Aspirin: No Condition: Stable Instructions: Contact Dermatitis (ED) Additional Instructions: Make sure to follow up with the primary care physician as discussed. Take all your medications as you've been prescribed. If you have any worsening symptoms or develop new symptoms please return to ED immediately. Prescriptions: diphenhydrAMINE [Benadryl CAP] 25 mg PO QHS PRN #30 capsule PRN Reason: Allergic Reaction Hydrocortisone 0.5% [Hydrocortisone 0.5% CREAM] 1 applicatio TP TID #1 tube Referrals: PRIMARY CARE,MD [Primary Care Provider] - 3-5 Days [facility] [Outside] - 3-5 Days [facility] [Outside] - 3-5 Days Forms: Work/School Release Form(ED) Time of Disposition: 14:58
== END 2017-08-27 15:18 | disposition home or self-care (01) ==
LOC: ED 11:42
DX: L25.9 Unspecified contact dermatitis, unspecified cause (principal)
CPT/HCPCS: 99282; J7512

== ENCOUNTER 2018-01-14 08:36 | Emergency (ER) | payer OTHER ==
[2018-01-14 08:41] VITALS: BP 130/89
[2018-01-14] MEDS ORDERED: TESSALON PERLES PO ONE (09:07)
[2018-01-14] MEDS ORDERED: MOTRIN PO ONE (09:07)
--- NOTE | 2018-01-14 09:08 | Emergency Department Report ---
- General Chief Complaint: Upper Respiratory Infection Stated Complaint: COLD Time Seen by Provider: 01/14/18 09:04 Source: patient Mode of arrival: Ambulatory Limitations: No Limitations - History of Present Illness Initial Comments: This is a 32-year-old female nontoxic, well nourished in appearance, no acute signs of distress presents to the ED with c/o of productive cough, sore throat, ear pain, body aches, rhinorrhea, nasal congestion x1 week. Patient describes productive cough as yellow mucus production. Patient denies any sick contact. Patient denies any recent travels, long car, recent hospital stays. Patient denies any calf pain or calf tenderness. Patient denies any chest pain, short of breath, fever, chills, nausea, vomiting, hemoptysis, numbness, tingling, headache or stiff neck. Patient denies any allergies or significant PMH. MD Complaint: cough, sore throat, rhinorrhea, nasal congestion -: week(s) (1) Severity: mild Severity scale (0 -10): 8 Quality: aching Consistency: constant Improves With: nothing Worsens With: nothing Associated Symptoms: rhinorrhea, nasal congestion, sore throat, cough, ear pain. denies: fever, chills, myalgias, diaphoresis, headache, stiff neck, chest pain, shortness of breath, abdominal pain, nausea, vomiting, diarrhea, dysuria, rash, confusion, right sweats, epistaxis, hoarseness Treatments Prior to Arrival: none - Related Data Previous Rx's Medication Instructions Recorded Last Taken Type Acetaminophen/Codeine [Tylenol 1 tab PO Q12H PRN #6 tab 10/07/16 Unknown Rx /Codeine # 3 tab] Naproxen [Naprosyn] 500 mg PO BID #10 tablet 03/31/17 Unknown Rx Azithromycin [Zithromax Z-RICHARD] 250 mg PO QDAY #6 tablet 05/15/17 Unknown Rx Benzonatate [Tessalon Perles] 100 mg PO Q8HR #20 capsule 05/15/17 Unknown Rx Ibuprofen [Motrin] 800 mg PO Q8HR PRN #15 tablet 05/15/17 Unknown Rx traMADol [Ultram 50 MG tab] 50 mg PO Q6HR PRN #10 tablet 05/15/17 Unknown Rx Hydrocortisone 0.5% 1 applicatio TP TID #1 tube 08/27/17 Unknown Rx [Hydrocortisone 0.5% CREAM] diphenhydrAMINE [Benadryl CAP] 25 mg PO QHS PRN #30 capsule 08/27/17 Unknown Rx Azithromycin [Zithromax Z-RICHARD] 250 mg PO DAILY #6 tablet 01/14/18 Unknown Rx Benzonatate [Tessalon Perle] 100 mg PO Q8H PRN #20 capsule 01/14/18 Unknown Rx Ibuprofen [Motrin] 600 mg PO Q8H PRN #20 tablet 01/14/18 Unknown Rx Prednisone [predniSONE 10 mg 10 mg PO .TAPER #1 tab.ds.pk 01/14/18 Unknown Rx (6-Day Pack, 21 Tabs)] Allergies Allergy/AdvReac Type Severity Reaction Status Date / Time No Known Allergies Allergy Verified 01/14/18 08:39 ED Review of Systems ROS: Stated complaint: COLD Other details as noted in HPI Constitutional: denies: chills, fever Eyes: denies: eye pain, eye discharge, vision change ENT: ear pain, throat pain Respiratory: cough. denies: shortness of breath, wheezing Cardiovascular: denies: chest pain, palpitations Endocrine: no symptoms reported Gastrointestinal: denies: abdominal pain, nausea, diarrhea Genitourinary: denies: urgency, dysuria, discharge Musculoskeletal: denies: back pain, joint swelling, arthralgia Skin: denies: rash, lesions Neurological: denies: headache, weakness, paresthesias Psychiatric: denies: anxiety, depression Hematological/Lymphatic: denies: easy bleeding, easy bruising ED Past Medical Hx - Past Medical History Previous Medical History?: No Hx Hypertension: No Hx Diabetes: No Hx Deep Vein Thrombosis: No Hx Renal Disease: No Hx Sickle Cell Disease: No Hx Seizures: No Hx Asthma: No Hx HIV: No Additional medical history: Vaginal delivery x 3 - Surgical History Past Surgical History?: No - Social History Smoking Status: Never Smoker Substance Use Type: None - Medications Home Medications: Home Medications Medication Instructions Recorded Confirmed Last Taken Type Acetaminophen/Codeine [Tylenol 1 tab PO Q12H PRN #6 tab 10/07/16 Unknown Rx /Codeine # 3 tab] Naproxen [Naprosyn] 500 mg PO BID #10 tablet 03/31/17 Unknown Rx Azithromycin [Zithromax Z-RICHARD] 250 mg PO QDAY #6 tablet 05/15/17 Unknown Rx Benzonatate [Tessalon Perles] 100 mg PO Q8HR #20 capsule 05/15/17 Unknown Rx Ibuprofen [Motrin] 800 mg PO Q8HR PRN #15 tablet 05/15/17 Unknown Rx traMADol [Ultram 50 MG tab] 50 mg PO Q6HR PRN #10 tablet 05/15/17 Unknown Rx Hydrocortisone 0.5% 1 applicatio TP TID #1 tube 08/27/17 Unknown Rx [Hydrocortisone 0.5% CREAM] diphenhydrAMINE [Benadryl CAP] 25 mg PO QHS PRN #30 capsule 08/27/17 Unknown Rx Azithromycin [Zithromax Z-RICHARD] 250 mg PO DAILY #6 tablet 01/14/18 Unknown Rx Benzonatate [Tessalon Perle] 100 mg PO Q8H PRN #20 capsule 01/14/18 Unknown Rx Ibuprofen [Motrin] 600 mg PO Q8H PRN #20 tablet 01/14/18 Unknown Rx Prednisone [predniSONE 10 mg 10 mg PO .TAPER #1 tab.ds.pk 01/14/18 Unknown Rx (6-Day Pack, 21 Tabs)] ED Physical Exam - General Limitations: No Limitations General appearance: alert, in no apparent distress - Head Head exam: Present: atraumatic, normocephalic - Eye Eye exam: Present: normal appearance Pupils: Present: normal accommodation - ENT ENT exam: Present: normal exam, normal orophraynx, mucous membranes moist, TM's normal bilaterally, normal external ear exam - Neck Neck exam: Present: normal inspection, full ROM. Absent: tenderness, meningismus, lymphadenopathy - Respiratory Respiratory exam: Present: normal lung sounds bilaterally. Absent: respiratory distress, wheezes, rales, rhonchi, stridor, chest wall tenderness, accessory muscle use, decreased breath sounds, prolonged expiratory - Cardiovascular Cardiovascular Exam: Present: regular rate, normal rhythm, normal heart sounds. Absent: irregular rhythm, systolic murmur, diastolic murmur, rubs, gallop - GI/Abdominal GI/Abdominal exam: Present: soft, normal bowel sounds. Absent: distended, tenderness, guarding, rebound, rigid, diminished bowel sounds - Extremities Exam Extremities exam: Present: normal inspection, full ROM, normal capillary refill. Absent: tenderness - Back Exam Back exam: Present: normal inspection, full ROM. Absent: tenderness, CVA tenderness (R), CVA tenderness (L), muscle spasm, paraspinal tenderness, vertebral tenderness, rash noted - Neurological Exam Neurological exam: Present: alert, oriented X3, normal gait - Psychiatric Psychiatric exam: Present: normal affect, normal mood - Skin Skin exam: Present: warm, dry, intact, normal color. Absent: rash ED Course Vital Signs 01/14/18 01/14/18 08:39 09:10 Temperature 98.4 F Pulse Rate 99 H Respiratory 20 18 Rate Blood Pressure 130/89 O2 Sat by Pulse 98 Oximetry - Reevaluation(s) Reevaluation #1: 01/14/18 09:28 Patient is speaking in full sentences with no signs of distress noted. ED Medical Decision Making - Medical Decision Making This is a 32-year-old female that presents with bronchitis. Patient is stable and was examined by me. Chest x-ray has been obtained and dictated by radiologist with normal exam. Patient is notified of x-ray results with no questions noted. Due to patient having symptoms of upper respiratory infection and worsening I will treat patient empirically with zpak. Patient was instructed to increase hydration, rest and take Motrin for fever episodes. Patient received motrin and tesslone perrls in the ED. Vitals stable. Patient is nonfebrile and normal heart rate. Patient was instructed Follow-up with a primary care doctor in 3-5 days or if symptoms worsen and continue return to emergency room as soon as possible. At time time of discharge, the patient does not seem toxic or ill in appearance. No acute signs of distress noted. Patient agrees to discharge treatment plan of care. No further questions noted by the patient. Critical care attestation.: If time is entered above; I have spent that time in minutes in the direct care of this critically ill patient, excluding procedure time. ED Disposition Clinical Impression: Bronchitis Disposition: DC-01 TO HOME OR SELFCARE Is pt being admited?: No Does the pt Need Aspirin: No Condition: Stable Instructions: Acute Bronchitis (ED) Additional Instructions: Follow-up with a primary care doctor in 3-5 days or if symptoms worsen and continue return to emergency room as soon as possible. Prescriptions: Azithromycin [Zithromax Z-RICHARD] 250 mg PO DAILY #6 tablet Benzonatate [Tessalon Perle] 100 mg PO Q8H PRN #20 capsule PRN Reason: Cough Ibuprofen [Motrin] 600 mg PO Q8H PRN #20 tablet PRN Reason: Pain Prednisone [predniSONE 10 mg (6-Day Pack, 21 Tabs)] 10 mg PO .TAPER #1 tab.ds.pk Referrals: PRIMARY CARE, [Primary Care Provider] - 3-5 Days IRAIS DAVIES MD [Staff Physician] - 3-5 Days [facility] [Outside] - 3-5 Days [facility] [Outside] - 3-5 Days Forms: Work/School Release Form(ED)
--- NOTE | 2018-01-14 09:29 | XRay Report ---
ROUTINE CHEST, TWO VIEWS: HISTORY: Cough. The trachea, heart, mediastinal contour, lung david and bony thorax are unremarkable. IMPRESSION: Unremarkable chest x-ray.
== END 2018-01-14 09:53 | disposition home or self-care (01) ==
LOC: ED 08:36
DX: J40 Bronchitis, not specified as acute or chronic (principal)
CPT/HCPCS: 71046; 99283

== ENCOUNTER 2018-05-29 21:33 | Emergency (ER) | payer OTHER ==
[2018-05-30] MEDS ORDERED: LIDOCAINE VISCOUS 2% PO ONE (04:07)
[2018-05-30] MEDS ORDERED: IBUPROFEN PO ONE (04:07)
--- NOTE | 2018-05-30 04:08 | Emergency Department Report ---
ED General Adult HPI - General Chief complaint: Sore Throat Stated complaint: SORE THROAT CHEST PAIN Time Seen by Provider: 05/30/18 04:00 Source: patient, RN notes reviewed, old records reviewed Mode of arrival: Ambulatory Limitations: No Limitations - History of Present Illness Initial comments: This is a 33-year-old female who reports that she is not , and reports no delivery or within the past 6 weeks. Presents to the ER with sore throat, runny nose, cough for the past few days. Symptoms are preceded by multiple sick contacts in friends and family. Symptoms constant, did not radiate anywhere, and do not have exacerbating or relieving factors. The patient denies other complaints at this point in time. Patient reports that she does not have access to her current outpatient hypertension medication. She reports that she would like a refill of her Procardia. -: Gradual Location: mouth Radiation: non-radiation Severity scale (0 -10): 5 Quality: aching Consistency: other Improves with: other Worsens with: other Associated Symptoms: cough. denies: confusion, chest pain, diaphoresis, fever/chills, headaches, loss of appetite, malaise, nausea/vomiting, rash, seizure, shortness of breath, syncope, weakness - Related Data Home Medications Medication Instructions Recorded Confirmed Last Taken risperiDONE [Risperdal] 1 tab PO 1XW 03/15/18 03/15/18 03/14/18 Previous Rx's Medication Instructions Recorded Last Taken Type Ondansetron [Zofran Odt] 4 mg PO Q8HR PRN #20 tab.rapdis 03/15/18 Unknown Rx Ibuprofen [Motrin 600 MG tab] 600 mg PO Q8H PRN #20 tablet 05/30/18 Unknown Rx NIFEdipine [Nifedipine] 1 tab PO DAILY #30 capsule 05/30/18 Unknown Rx Allergies Allergy/AdvReac Type Severity Reaction Status Date / Time No Known Allergies Allergy Verified 01/14/18 08:39 ED Review of Systems ROS: Stated complaint: SORE THROAT CHEST PAIN Other details as noted in HPI Constitutional: denies: fever, malaise, weakness Eyes: denies: eye discharge, vision change ENT: congestion. denies: epistaxis Respiratory: cough Cardiovascular: denies: chest pain Gastrointestinal: denies: abdominal pain, nausea, vomiting Genitourinary: denies: dysuria Musculoskeletal: denies: back pain Skin: denies: lesions Neurological: denies: weakness Psychiatric: denies: anxiety ED Past Medical Hx - Past Medical History Hx Hypertension: Yes Hx Diabetes: No Hx Deep Vein Thrombosis: No Hx Renal Disease: No Hx Sickle Cell Disease: No Hx Seizures: No Hx Asthma: No Hx HIV: No Additional medical history: Vaginal delivery x 3 - Surgical History Past Surgical History?: No - Social History Smoking Status: Never Smoker Substance Use Type: None - Medications Home Medications: Home Medications Medication Instructions Recorded Confirmed Last Taken Type Ondansetron [Zofran Odt] 4 mg PO Q8HR PRN #20 tab.rapdis 03/15/18 Unknown Rx risperiDONE [Risperdal] 1 tab PO 1XW 03/15/18 03/15/18 03/14/18 History Ibuprofen [Motrin 600 MG tab] 600 mg PO Q8H PRN #20 tablet 05/30/18 Unknown Rx NIFEdipine [Nifedipine] 1 tab PO DAILY #30 capsule 05/30/18 Unknown Rx ED Physical Exam - General Limitations: No Limitations General appearance: alert, in no apparent distress - Head Head exam: Present: atraumatic, normocephalic - Eye Eye exam: Present: normal appearance, PERRL, EOMI. Absent: nystagmus - ENT ENT exam: Present: normal exam, normal orophraynx, mucous membranes moist, normal external ear exam (patient speaking in full sentences with no stridor) - Neck Neck exam: Present: normal inspection, full ROM. Absent: tenderness, meningismus - Respiratory Respiratory exam: Present: normal lung sounds bilaterally. Absent: respiratory distress, chest wall tenderness - Cardiovascular Cardiovascular Exam: Present: regular rate, normal rhythm, normal heart sounds. Absent: bradycardia, tachycardia, irregular rhythm, systolic murmur, diastolic murmur, rubs, gallop - GI/Abdominal GI/Abdominal exam: Present: soft. Absent: distended, tenderness, guarding, rebound, rigid, pulsatile mass - Extremities Exam Extremities exam: Present: normal inspection, full ROM, other (2+ pulses noted in the bilateral upper, lower extremities. Compartments soft. No long bony tenderness. The pelvis is stable.). Absent: pedal edema, joint swelling, calf tenderness - Back Exam Back exam: Present: normal inspection, full ROM. Absent: tenderness, CVA tenderness (R), paraspinal tenderness, vertebral tenderness - Neurological Exam Neurological exam: Present: alert, oriented X3, CN II-XII intact, normal gait, other (Extraocular movements intact. Tongue midline. No facial droop. Facial sensation intact to light touch in the V1, V2, V3 distribution bilaterally. 5 and 5 strength in 4 extremities.. Sensation is intact to light touch in 4 extremities.). Absent: motor sensory deficit - Psychiatric Psychiatric exam: Present: normal affect, normal mood - Skin Skin exam: Present: warm, dry, intact, normal color. Absent: rash ED Course Vital Signs 05/29/18 05/30/18 22:00 04:14 Temperature 97.9 F 98.2 F Pulse Rate 65 72 Respiratory 18 17 Rate Blood Pressure 165/96 Blood Pressure 131/70 [Right] O2 Sat by Pulse 100 97 Oximetry ED Medical Decision Making - Lab Data Vital Signs 05/29/18 05/30/18 22:00 04:14 Temperature 97.9 F 98.2 F Pulse Rate 65 72 Respiratory 18 17 Rate Blood Pressure 165/96 Blood Pressure 131/70 [Right] O2 Sat by Pulse 100 97 Oximetry Lab Results 05/29/18 Range/Units 22:00 Group A Strep Rapid Negative (Negative) - Medical Decision Making Differential diagnosis, including not limited to: Enteritis, viral syndrome, medication refill Assessment and plan: 33-year-old female with probable simple viral pharyngitis. The patient is afebrile, with reassuring vital signs with the exception of elevated blood pressure which is chronic. The patient is low risk by Centor score, and has a negative strep screen. She is resting comfortably and has unremarkable physical examination. She felt improved after supportive therapy. She will be discharged with pain medication, we will refill her antihypertensive medication, and she is medically suitable to be discharged to follow up with the primary care doctor. Critical care attestation.: If time is entered above; I have spent that time in minutes in the direct care of this critically ill patient, excluding procedure time. ED Disposition Clinical Impression: Pharyngitis, Medication refill, Elevated blood pressure reading Disposition: TO HOME OR SELFCARE Is pt being admited?: No Does the pt Need Aspirin: No Condition: Good Instructions: Pharyngitis (ED), Hypertension (ED) Additional Instructions: Cultures were sent today, and results will be available in the next 3-5 days. Please have a primary care doctor contact the medical records department to obtain culture results. Return to the emergency room right away with new, worsening or different symptoms. Take a blood pressure medication as directed. Long-term complications of hypertension and elevated blood pressure includes stroke, heart attack, disability, loss of quality of life. Please return to the emergency room right away with new, worsening or different symptoms. Referrals: [facility] [Provider Group] - as needed
[2018-05-30 05:51] VITALS: BP 131/74
== END 2018-05-30 05:52 | disposition home or self-care (01) ==
LOC: ED 21:33
DX: J02.9 Acute pharyngitis, unspecified (principal); Z76.0 Encounter for issue of repeat prescription; I10 Essential (primary) hypertension
CPT/HCPCS: 87116; 87430; 99283

== ENCOUNTER 2018-06-01 01:53 | Emergency (ER) | payer OTHER ==
--- NOTE | 2018-06-01 03:43 | Emergency Department Report ---
ED General Adult HPI - General Chief complaint: Upper Respiratory Infection Stated complaint: COUGH/RASH/MED REFILL Time Seen by Provider: 06/01/18 03:24 Source: patient Mode of arrival: Ambulatory Limitations: No Limitations - History of Present Illness Initial comments: 33-year-old -[place] female who was seen here yesterday for sore throat continues to have sore throat despite taking meds. Patient is requesting blood pressure medicine that is approved by Medicaid. Patient had a rapid strep which was negative. Patient is afebrile. Patient is followed by [facility]. Patient denies any fever chills no nausea no vomiting no chest pain or shortness of breathing. Consistency: intermittent - Related Data Home Medications Medication Instructions Recorded Confirmed Last Taken risperiDONE [Risperdal] 1 tab PO 1XW 03/15/18 03/15/18 03/14/18 Previous Rx's Medication Instructions Recorded Last Taken Type Ondansetron [Zofran Odt] 4 mg PO Q8HR PRN #20 tab.rapdis 03/15/18 Unknown Rx Ibuprofen [Motrin 600 MG tab] 600 mg PO Q8H PRN #20 tablet 05/30/18 Unknown Rx NIFEdipine [Nifedipine] 1 tab PO DAILY #30 capsule 05/30/18 Unknown Rx Allergies Allergy/AdvReac Type Severity Reaction Status Date / Time No Known Allergies Allergy Verified 01/14/18 08:39 ED Review of Systems ROS: Stated complaint: COUGH/RASH/MED REFILL Other details as noted in HPI Comment: All other systems reviewed and negative ENT: throat pain ED Past Medical Hx - Past Medical History Hx Hypertension: Yes Hx Diabetes: No Hx Deep Vein Thrombosis: No Hx Renal Disease: No Hx Sickle Cell Disease: No Hx Seizures: No Hx Asthma: No Hx HIV: No Additional medical history: Vaginal delivery x 3 - Surgical History Past Surgical History?: No - Social History Smoking Status: Current Every Day Smoker Substance Use Type: None - Medications Home Medications: Home Medications Medication Instructions Recorded Confirmed Last Taken Type Ondansetron [Zofran Odt] 4 mg PO Q8HR PRN #20 tab.rapdis 03/15/18 Unknown Rx risperiDONE [Risperdal] 1 tab PO 1XW 03/15/18 03/15/18 03/14/18 History Ibuprofen [Motrin 600 MG tab] 600 mg PO Q8H PRN #20 tablet 05/30/18 Unknown Rx NIFEdipine [Nifedipine] 1 tab PO DAILY #30 capsule 05/30/18 Unknown Rx ED Physical Exam - General Limitations: No Limitations General appearance: alert, in no apparent distress - Head Head exam: Present: atraumatic, normocephalic - Eye Eye exam: Present: EOMI - ENT ENT exam: Present: mucous membranes moist - Expanded ENT Exam Expanded Throat exam: Positive: tonsillar erythema. Negative: tonsillomegaly, tonsillar exudate - Neck Neck exam: Present: tenderness. Absent: lymphadenopathy - Respiratory Respiratory exam: Present: normal lung sounds bilaterally. Absent: respiratory distress - Cardiovascular Cardiovascular Exam: Present: regular rate, normal rhythm. Absent: systolic murmur, diastolic murmur, rubs, gallop ED Course Vital Signs 06/01/18 01:58 Temperature 98 F Pulse Rate 68 Respiratory 16 Rate Blood Pressure 154/94 O2 Sat by Pulse 99 Oximetry ED Medical Decision Making - Medical Decision Making Patient has been evaluated by this provider in fast track. I took the time to look up patient's nifedipine and found it with good Rx of $14 and 98 since at [facility]. Patient will be given a good Rx cards. I discussed the patient she should follow up at [place] or her primary care provider is supposed they are able to do a prior authorization to get her nifedipine covered under her insurance. Patient verbalized understanding. I discussed the patient to continue with her ibuprofen increase her fluid intake advance her t as tolerated. Patient verbalized understanding Critical care attestation.: If time is entered above; I have spent that time in minutes in the direct care of this critically ill patient, excluding procedure time. ED Disposition Clinical Impression: Medication refill Pharyngitis Qualifiers: Pharyngitis/tonsillitis etiology: unspecified etiology Qualified Code(s): J02.9 - Acute pharyngitis, unspecified Disposition: DC-01 TO HOME OR SELFCARE Is pt being admited?: No Does the pt Need Aspirin: No Condition: Stable Additional Instructions: Please fill your prescription at [facility] using a good RX cart. Please continue with the ibuprofen increase her fluid intake advance her diet as tolerated and follow-up with degree provider. Referrals: [facility] [Outside] - 3-5 Days
== END 2018-06-01 04:10 | disposition home or self-care (01) ==
LOC: ED 01:53
CPT/HCPCS: 99282

== ENCOUNTER 2018-06-02 04:32 | Emergency (ER) | payer OTHER ==
--- NOTE | 2018-06-02 08:15 | Emergency Department Report ---
[facility] Chief Complaint: Eye Problems Stated Complaint: R EYE REDNESS/POSS PINK EYE Time Seen by Provider: 06/02/18 08:03 Duration: 3 Days Side: Right Severity: moderate Symptoms: Yes Eye Itching, Yes Eye Redness, Yes Mucous Drainage, Yes Purulent Drainage, Yes Preceding URI, No Eye Pain, No Blurred Vision, No H/O Allergic Rhinitis, No Contact Lens Use, No Trauma, No Fever ED Review of Systems ROS: Stated complaint: R EYE REDNESS/POSS PINK EYE Other details as noted in HPI Comment: All other systems reviewed and negative ED Past Medical Hx - Past Medical History Hx Hypertension: Yes Hx Diabetes: No Hx Deep Vein Thrombosis: No Hx Renal Disease: No Hx Sickle Cell Disease: No Hx Seizures: No Hx Psychiatric Treatment: Yes Hx Asthma: No Hx HIV: No Additional medical history: Vaginal delivery x 3 - Surgical History Past Surgical History?: No - Social History Smoking Status: Current Some Day Smoker Substance Use Type: None - Medications Home Medications: Home Medications Medication Instructions Recorded Confirmed Last Taken Type Ondansetron [Zofran Odt] 4 mg PO Q8HR PRN #20 tab.rapdis 03/15/18 Unknown Rx risperiDONE [Risperdal] 1 tab PO 1XW 03/15/18 03/15/18 03/14/18 History Ibuprofen [Motrin 600 MG tab] 600 mg PO Q8H PRN #20 tablet 05/30/18 Unknown Rx NIFEdipine [Nifedipine] 1 tab PO DAILY #30 capsule 05/30/18 Unknown Rx Gentamicin 0.3% Ophth Soln 2 drops OP Q4H #1 bottle 06/02/18 Unknown Rx Naphazoline HCl/Pheniramine 2 drops OP BID #1 bottle 06/02/18 Unknown Rx [Naphcon-A Eye Drops] [facility] Exam - Exam General: Vital signs noted. No distress. Alert and acting appropriately. Eye Exam: Right Injection, Right Mucous Discharge, Right Purulent Discharge, Neither Chemosis, Neither Abnormal Pupil, Neither EOMI, Neither Eye Foreign Body, Neither Lid Foreign Body, Neither Fluorescein Uptake, Neither Fluorescein Uptake (slit lamp), Neither Cell/Flare (slit lamp), Neither Corneal Edema, Neither Photophobia HEENT: No Nasal Congestion, No Pharyngeal Erythema Remainder of HEENT: Normal Lungs: Yes Clear Lung Sounds, Yes Good Air Exchange, No Wheezes, No Stridor, No Cough, No Nasal Flaring ED Course Vital Signs 06/02/18 06/02/18 06/02/18 04:37 05:36 07:52 Temperature 98.1 F 98.1 F Pulse Rate 71 63 Respiratory 18 18 Rate Blood Pressure 182/95 182/95 Blood Pressure 156/93 [Right] O2 Sat by Pulse 98 98 Oximetry ED Medical Decision Making - Medical Decision Making Patient be treated with meds for symptomatic relief will be discharged home. Critical care attestation.: If time is entered above; I have spent that time in minutes in the direct care of this critically ill patient, excluding procedure time. ED Disposition Clinical Impression: Bacterial conjunctivitis Disposition: DC-01 TO HOME OR SELFCARE Is pt being admited?: No Does the pt Need Aspirin: No Condition: Stable Instructions: Conjunctivitis (ED) Referrals: DESTINEY HIGHTOWER [Primary Care Provider] - 3-5 Days Time of Disposition: 08:14
== END 2018-06-02 08:24 | disposition home or self-care (01) ==
LOC: ED 04:32
CPT/HCPCS: 99282; 99283

== ENCOUNTER 2019-02-24 10:40 | Emergency (ER) | payer OTHER ==
[2019-02-24 10:50] VITALS: BP 132/87
--- NOTE | 2019-02-24 12:19 | XRay Report ---
CHEST 2 VIEWS INDICATION: productive cough sob. COMPARISON: None FINDINGS: Support devices: None. Heart: Within normal limits. Lungs/pleura: No acute air space or interstitial disease. No pneumothorax. Additional findings: None. IMPRESSION: Normal chest x-ray. Signer Name: Zhao Low Jr, MD Signed: 02/24/2019 12:15 PM Workstation Name: [id number]
--- NOTE | 2019-02-24 12:35 | Emergency Department Report ---
- General Chief Complaint: Upper Respiratory Infection Stated Complaint: COLD SX/PAIN IN CHEST Time Seen by Provider: 02/24/19 11:43 Source: patient Mode of arrival: Ambulatory Limitations: No Limitations - History of Present Illness Initial Comments: This 34-year-old female who is presenting with cough congestion and sinus tenderness for the last 2-3 days. Patient states she has pain in her mid face and forehead of the present for several days. This is above the symptom that started her symptoms. Pain is a 8 out of 10 in severity. Patient's now has developed a cough which is productive of clear to yellow sputum. Patient has subjective fevers and chills. She complains of shortness of breath. Patient denies nausea vomiting diarrhea neck stiffness or sore throat. - Related Data Home Medications Medication Instructions Recorded Confirmed Last Taken risperiDONE [Risperdal] 1 tab PO 1XW 03/15/18 03/15/18 03/14/18 Previous Rx's Medication Instructions Recorded Last Taken Type Ondansetron [Zofran Odt] 4 mg PO Q8HR PRN #20 tab.rapdis 03/15/18 Unknown Rx Ibuprofen [Motrin 600 MG tab] 600 mg PO Q8H PRN #20 tablet 05/30/18 Unknown Rx NIFEdipine [Nifedipine] 1 tab PO DAILY #30 capsule 05/30/18 Unknown Rx Gentamicin 0.3% Ophth Soln 2 drops OP Q4H #1 bottle 06/02/18 Unknown Rx Naphazoline HCl/Pheniramine 2 drops OP BID #1 bottle 06/02/18 Unknown Rx [Naphcon-A Eye Drops] Amoxicillin/Potassium Clav 1 each PO BID #14 tablet 02/24/19 Unknown Rx [Augmentin 875-125 Tablet] Benzonatate [Tessalon Perles] 100 mg PO Q8HR #10 capsule 02/24/19 Unknown Rx Fluticasone [Flonase] 1 spray NS QDAY #1 bottle 02/24/19 Unknown Rx predniSONE [Deltasone] 20 mg PO QDAY #5 tab 02/24/19 Unknown Rx Allergies Allergy/AdvReac Type Severity Reaction Status Date / Time No Known Allergies Allergy Verified 01/14/18 08:39 ED Review of Systems ROS: Stated complaint: COLD SX/PAIN IN CHEST Other details as noted in HPI Comment: All other systems reviewed and negative ED Past Medical Hx - Past Medical History Previous Medical History?: Yes Hx Hypertension: Yes Hx Diabetes: No Hx Deep Vein Thrombosis: No Hx Renal Disease: No Hx Sickle Cell Disease: No Hx Seizures: No Hx Psychiatric Treatment: Yes Hx Asthma: No Hx HIV: No Additional medical history: Vaginal delivery x 3 - Surgical History Past Surgical History?: No - Social History Smoking Status: Never Smoker - Medications Home Medications: Home Medications Medication Instructions Recorded Confirmed Last Taken Type Ondansetron [Zofran Odt] 4 mg PO Q8HR PRN #20 tab.rapdis 03/15/18 Unknown Rx risperiDONE [Risperdal] 1 tab PO 1XW 03/15/18 03/15/18 03/14/18 History Ibuprofen [Motrin 600 MG tab] 600 mg PO Q8H PRN #20 tablet 05/30/18 Unknown Rx NIFEdipine [Nifedipine] 1 tab PO DAILY #30 capsule 05/30/18 Unknown Rx Gentamicin 0.3% Ophth Soln 2 drops OP Q4H #1 bottle 06/02/18 Unknown Rx Naphazoline HCl/Pheniramine 2 drops OP BID #1 bottle 06/02/18 Unknown Rx [Naphcon-A Eye Drops] Amoxicillin/Potassium Clav 1 each PO BID #14 tablet 02/24/19 Unknown Rx [Augmentin 875-125 Tablet] Benzonatate [Tessalon Perles] 100 mg PO Q8HR #10 capsule 02/24/19 Unknown Rx Fluticasone [Flonase] 1 spray NS QDAY #1 bottle 02/24/19 Unknown Rx predniSONE [Deltasone] 20 mg PO QDAY #5 tab 02/24/19 Unknown Rx ED Physical Exam - General Limitations: No Limitations General appearance: alert, in no apparent distress - Head Head exam: Present: atraumatic, normocephalic - Eye Eye exam: Present: normal appearance - ENT ENT exam: Present: mucous membranes moist - Neck Neck exam: Present: normal inspection - Respiratory Respiratory exam: Present: normal lung sounds bilaterally. Absent: respiratory distress, wheezes, rales - Cardiovascular Cardiovascular Exam: Present: regular rate, normal rhythm, normal heart sounds. Absent: systolic murmur, diastolic murmur, rubs, gallop - GI/Abdominal GI/Abdominal exam: Present: soft, normal bowel sounds. Absent: distended, tenderness, guarding, rebound - Extremities Exam Extremities exam: Present: normal inspection - Back Exam Back exam: Present: normal inspection - Neurological Exam Neurological exam: Present: alert, oriented X3 - Psychiatric Psychiatric exam: Present: normal affect, normal mood - Skin Skin exam: Present: warm, dry, intact, normal color. Absent: rash ED Course Vital Signs 02/24/19 10:47 Temperature 99.1 F Pulse Rate 69 Respiratory 16 Rate Blood Pressure 132/87 O2 Sat by Pulse 94 Oximetry ED Medical Decision Making - Radiology Data Radiology results: report reviewed (chest x-ray is within normal limits) - Medical Decision Making Patient is a 34-year-old female who is presenting with cough, congestion and facial pain. Clinically the patient has a sinus infection. Patient be started on Augmentin. X-ray of the chest was done to rule out pneumonia since the patient does have a productive cough and her admitting O2 sat saturations 94%. X-ray was negative for pneumonia. Patient will be discharged home with medication for symptomatic relief as well. Critical care attestation.: If time is entered above; I have spent that time in minutes in the direct care of this critically ill patient, excluding procedure time. ED Disposition Clinical Impression: Acute sinusitis Qualifiers: Sinusitis location: frontal Recurrence: non-recurrent Qualified Code(s): J01.10 - Acute frontal sinusitis, unspecified Acute bronchitis Qualifiers: Bronchitis organism: unspecified organism Qualified Code(s): J20.9 - Acute bronchitis, unspecified Disposition: -01 TO HOME OR SELFCARE Is pt being admited?: No Does the pt Need Aspirin: No Condition: Stable Instructions: Acute Bronchitis (ED), Acute Bacterial Rhinosinusitis (ED) Referrals: BRYANT VELASQUEZ MD [Referring] - 3-5 Days Time of Disposition: 12:35
== END 2019-02-24 12:45 | disposition home or self-care (01) ==
LOC: ED 10:40
DX: J20.9 Acute bronchitis, unspecified (principal); J01.90 Acute sinusitis, unspecified; I10 Essential (primary) hypertension
CPT/HCPCS: 71046; 99283

== ENCOUNTER 2020-04-15 12:34 | Emergency (ER) | payer MEDICAID, OTHER ==
[2020-04-15 13:09] VITALS: BP 125/60
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
== END 2020-04-15 15:35 | disposition home or self-care (01) ==
LOC: ED 12:34
DX: R09.89 Other specified symptoms and signs involving the circulatory and respiratory systems (principal); I10 Essential (primary) hypertension; Z79.2 Long term (current) use of antibiotics; Z79.899 Other long term (current) drug therapy; Y04.8XXA Assault by other bodily force, initial encounter; Y93.89 Activity, other specified; Y92.89 Other specified places as the place of occurrence of the external cause; Y99.8 Other external cause status
CPT/HCPCS: 93005; 99282

== ENCOUNTER 2020-09-27 12:44 | Emergency (ER) | payer MEDICAID ==
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
[2020-09-27 15:25] VITALS: BP 136/78
== END 2020-09-27 15:23 | disposition home or self-care (01) ==
LOC: ED 12:44
DX: H10.022 Other mucopurulent conjunctivitis, left eye (principal); I10 Essential (primary) hypertension; Z79.899 Other long term (current) drug therapy
CPT/HCPCS: 99282

== ENCOUNTER 2020-11-13 16:06 | Emergency (ER) | payer MEDICAID ==
[2020-11-13 19:37] VITALS: BP 147/88
--- NOTE | 2020-11-13 19:45 | Emergency Department Report ---
ED Head Trauma HPI - General Chief complaint: Head Injury Stated complaint: HEAD INJURY Source: patient Mode of arrival: Ambulatory Limitations: No Limitations - History of Present Illness Initial comments: 35-year-old female presents to the ER today with complaints of head injury, neck pain and thoracic back pain. Patient states that 3 days ago she accidentally struck her head on a piece of metal that was attached to the water heater next to her dryer. She states that "I hit my head heart". She denies any LOC. She states that since then she has been having headache, posterior neck pain, and thoracic back pain. She denies any nausea, vomiting, numbness, tingling, focal weakness, chest pain, shortness of breath or any additional symptoms at this time. He is not on any anticoagulants or any antiplatelets. She denies any alcohol use at the time of the injury. MD Complaint: head injury, other (neck and thoracic back pain ) -: Sudden, days(s) (3) - Related Data Home Medications Medication Instructions Recorded Confirmed Last Taken risperiDONE [Risperdal] 1 tab PO 1XW 03/15/18 03/15/18 03/14/18 Previous Rx's Medication Instructions Recorded Last Taken Type NIFEdipine [Nifedipine] 1 tab PO DAILY #30 capsule 05/30/18 Unknown Rx Polymyxin B Sulf/Trimethoprim 1 drop OS QID #1 bottle 09/27/20 Unknown Rx [Polytrim Eye Drops 23156rutvi/0.1%] Butalb/Acetamin/Caff 50-325-40 1 tab PO Q6HR PRN #20 tab 11/13/20 Unknown Rx [Fioricet 50-325-40] methOCARBAMOL [Robaxin TAB] 500 mg PO Q6H PRN #20 tablet 11/13/20 Unknown Rx Allergies/Adverse reactions: Allergies Allergy/AdvReac Type Severity Reaction Status Date / Time mushroom Allergy Unknown Verified 11/13/20 19:37 ED Review of Systems ROS: Stated complaint: HEAD INJURY Other details as noted in HPI Comment: All other systems reviewed and negative Constitutional: denies: chills, fever Eyes: denies: eye pain, eye discharge, vision change ENT: denies: ear pain, throat pain, dental pain, hearing loss, epistaxis, congestion Respiratory: denies: cough, shortness of breath, wheezing Cardiovascular: denies: chest pain, palpitations, dyspnea on exertion, edema, syncope, paroxysmal nocturnal dyspnea Gastrointestinal: denies: abdominal pain, nausea, vomiting, diarrhea, constipation, hematemesis, hematochezia Genitourinary: denies: urgency, dysuria, discharge Musculoskeletal: back pain, other (Neck pain). denies: joint swelling, arthralgia Skin: denies: rash, lesions, change in color, change in hair/nails, pruritus Neurological: headache. denies: weakness, numbness, paresthesias, confusion, abnormal gait, vertigo Psychiatric: denies: anxiety, depression, auditory hallucinations, visual hallucinations, homicidal thoughts, suicidal thoughts Hematological/Lymphatic: denies: easy bleeding, easy bruising ED Past Medical Hx - Past Medical History Previous Medical History?: Yes Hx Hypertension: Yes Hx Diabetes: No Hx Deep Vein Thrombosis: No Hx Renal Disease: No Hx Sickle Cell Disease: No Hx Seizures: No Hx Psychiatric Treatment: Yes Hx Asthma: No Hx HIV: No Additional medical history: Vaginal delivery x 3 - Surgical History Past Surgical History?: No - Social History Smoking Status: Never Smoker Substance Use Type: None - Medications Home Medications: Home Medications Medication Instructions Recorded Confirmed Last Taken Type risperiDONE [Risperdal] 1 tab PO 1XW 03/15/18 03/15/18 03/14/18 History NIFEdipine [Nifedipine] 1 tab PO DAILY #30 capsule 05/30/18 Unknown Rx Polymyxin B Sulf/Trimethoprim 1 drop OS QID #1 bottle 09/27/20 Unknown Rx [Polytrim Eye Drops 43464waits/0.1%] Butalb/Acetamin/Caff 50-325-40 1 tab PO Q6HR PRN #20 tab 11/13/20 Unknown Rx [Fioricet 50-325-40] methOCARBAMOL [Robaxin TAB] 500 mg PO Q6H PRN #20 tablet 11/13/20 Unknown Rx ED Physical Exam - General Limitations: No Limitations General appearance: alert, in no apparent distress - Head Head exam: Present: atraumatic, normocephalic, normal inspection - Eye Eye exam: Present: normal appearance, PERRL, EOMI Pupils: Present: normal accommodation - ENT ENT exam: Present: normal exam, mucous membranes moist, TM's normal bilaterally - Neck Neck exam: Present: normal inspection, tenderness (Tenderness to palpation to the left paraspinal muscle; mid to upper midline tenderness along the cervical spine.), full ROM (She does have full range of motion of the cervical spine but there is pain with range of motion.). Absent: meningismus, lymphadenopathy, thyromegaly - Respiratory Respiratory exam: Present: normal lung sounds bilaterally. Absent: respiratory distress, wheezes, rales, rhonchi - Cardiovascular Cardiovascular Exam: Present: regular rate, normal rhythm, normal heart sounds - GI/Abdominal GI/Abdominal exam: Present: soft. Absent: distended, tenderness, guarding, rebound, rigid - Back Exam Back exam: Present: full ROM, paraspinal tenderness (Left upper to mid thoracic area), vertebral tenderness (Upper to mid thoracic spine) - Neurological Exam Neurological exam: Present: alert, oriented X3, CN II-XII intact, normal gait - Psychiatric Psychiatric exam: Present: normal affect, normal mood ED Course Vital Signs 11/13/20 19:36 Temperature 98.2 F Pulse Rate 64 Respiratory 19 Rate Blood Pressure 147/88 [Right] O2 Sat by Pulse 98 Oximetry - Radiology Data Radiology results: report reviewed Patient: АНДРЕЙ RODGERS MR#: [id number] : 1985 Acct:[id number] Age/Sex: 35 / F ADM Date: 11/13/20 Loc: ED Attending Dr: Ordering Physician: MAHESH GARCIA Date of Service: 11/13/20 Procedure(s): XR spine cervical 2-3V Accession Number(s): [id number] cc: MAHESH GARCIA Fluoro Time In Minutes: CERVICAL SPINE 3 VIEWS INDICATION / CLINICAL INFORMATION: Head injury 3 days ago with neck pain and headache. COMPARISON: None available. FINDINGS: BONES / JOINT(S): The vertebral body heights and disc spaces are well- maintained. No significant arthritis. There is no evidence of fracture or subluxation. SOFT TISSUES: The prevertebral soft tissues are normal. ADDITIONAL FINDINGS: The visualized lung apices are clear. IMPRESSION: No acute abnormality. Signer Name: González Graham MD Signed: 11/13/2020 8:51 PM Workstation Name: [id number] Transcribed By: RT Dictated By: González Graham MD Electronically Authenticated By: González Graham MD Signed Date/Time: 11/13/202050 DD/ 49 TD/TT: Patient: АНДРЕЙ RODGERS MR#: [id number] : 1985 Acct:[id number] Age/Sex: 35 / F ADM Date: 11/13/20 Loc: ED Attending Dr: Ordering Physician: MAHESH GARCIA Date of Service: 11/13/20 Procedure(s): XR spine thoracic 3V Accession Number(s): [id number] cc: MAHESH GARCIA Fluoro Time In Minutes: THORACIC SPINE 3 VIEWS INDICATION / CLINICAL INFORMATION: Head injury 3 days ago with back and shoulder pain. COMPARISON: None available. FINDINGS: BONES / JOINT(S): The vertebral body heights and disc spaces are well- maintained. No significant arthritis. The pedicles are intact. There is no evidence of acute fracture or subluxation. SOFT TISSUES: No significant abnormality. ADDITIONAL FINDINGS: None. IMPRESSION: No acute abnormality. Signer Name: González Graham MD Signed: 11/13/2020 8:52 PM Workstation Name: [id number] Transcribed By: RT Dictated By: González Graham MD Electronically Authenticated By: González Graham MD Signed Date/Time: 11/13/202051 DD/ 50 TD/TT: - Medical Decision Making X-ray of the cervical spine and thoracic spine shows nothing acute. Patient currently is awake alert oriented x3 with GCS of 15. She has no focal neurological deficits on exam. She has a normal gait in the ER. She is not toxic or ill-appearin. she appears well-hydrated. Her history, exam, diagnostic testing and current condition does not demonstrate signs of basilar skull fracture, clinically significant intracranial injury or cervical trauma requiring any additional testing, admission or transfer at this time.. Patient's vital signs have been stable. Discussed imaging results, discussed suspected diagnosis and treatment plan with patient. The patient condition is stable and appropriate for discharge. Critical care attestation.: If time is entered above; I have spent that time in minutes in the direct care of this critically ill patient, excluding procedure time. ED Disposition Clinical Impression: Head injury, Cervical strain, Strain of thoracic back region Disposition: PAT REG,NO TRIAGE Is pt being admited?: No Does the pt Need Aspirin: No Condition: Stable Instructions: Facial or Scalp Contusion, [id number], Muscle Strain Additional Instructions: Recommend that you take the Fioricet, and the muscle relaxer as prescribed. Recommend that you follow-up with primary care doctor listed on your discharge instructions. Return to the ER if your symptoms changes or worsens in any way. Prescriptions: Butalb/Acetamin/Caff 50-325-40 [Fioricet 50-325-40] 1 tab PO Q6HR PRN #20 tab PRN Reason: Headache methOCARBAMOL [Robaxin TAB] 500 mg PO Q6H PRN #20 tablet PRN Reason: muscle pain Referrals: [facility] [Provider Group] - 3-5 Days Forms: Work/School Release Form(ED) Time of Disposition: 21:08
--- NOTE | 2020-11-13 20:55 | XRay Report ---
CERVICAL SPINE 3 VIEWS INDICATION / CLINICAL INFORMATION: Head injury 3 days ago with neck pain and headache. COMPARISON: None available. FINDINGS: BONES / JOINT(S): The vertebral body heights and disc spaces are well-maintained. No significant arth ritis. There is no evidence of fracture or subluxation. SOFT TISSUES: The prevertebral soft tissues are normal. ADDITIONAL FINDINGS: The visualized lung apices are clear. IMPRESSION: No acute abnormality. Signer Name: González Graham MD Signed: 11/13/2020 8:51 PM Workstation Name: [id number]
--- NOTE | 2020-11-13 20:56 | XRay Report ---
THORACIC SPINE 3 VIEWS INDICATION / CLINICAL INFORMATION: Head injury 3 days ago with back and shoulder pain. COMPARISON: None available. FINDINGS: BONES / JOINT(S): The vertebral body heights and disc spaces are well-maintained. No significant arth ritis. The pedicles are intact. There is no evidence of acute fracture or subluxation. SOFT TISSUES: No significant abnormality. ADDITIONAL FINDINGS: None. IMPRESSION: No acute abnormality. Signer Name: González Graham MD Signed: 11/13/2020 8:52 PM Workstation Name: [id number]
== END 2020-11-13 21:30 | disposition left against medical advice (07) ==
LOC: ED 16:06
DX: S09.90XA Unspecified injury of head, initial encounter (principal); S16.1XXA Strain of muscle, fascia and tendon at neck level, initial encounter; S39.012A Strain of muscle, fascia and tendon of lower back, initial encounter; I10 Essential (primary) hypertension; Z00.8 Encounter for other general examination; Z98.890 Other specified postprocedural states; Z91.018 Allergy to other foods; W22.8XXA Striking against or struck by other objects, initial encounter; Y93.89 Activity, other specified; Y92.89 Other specified places as the place of occurrence of the external cause; Y99.8 Other external cause status
CPT/HCPCS: 72040; 72072; 99283